=== PATIENT | female | born 1945 | race Caucasian/White ===

== ENCOUNTER → 2016-10-15 | Outpatient (CLI) | payer OTHER | LOC: BMCIMAGING 12:02 | PROVIDERS: ATTEND Nurse Practitioner Obstetrics & Gynecology | DX: Z12.31 Encounter for screening mammogram for malignant neoplasm of breast (principal); Z80.3 Family history of malignant neoplasm of breast; Z85.42 Personal history of malignant neoplasm of other parts of uterus | CPT/HCPCS: G0202 ==

== ENCOUNTER → 2017-02-11 | Outpatient (CLI) | payer OTHER | LOC: BMCIMAGING 09:26 | PROVIDERS: ATTEND Emergency Medicine | DX: M25.551 Pain in right hip (principal) ==

== ENCOUNTER → 2017-07-26 | Outpatient (CLI) | payer OTHER ==
[~2017-07-26] MED LIST: IOPAMIDOL (ISOVUE 370) 100 ML BTL IV ONE
== END ==
LOC: FIMAGING 10:18
PROVIDERS: ATTEND Internal Medicine Cardiovascular Disease
DX: I48.91 Unspecified atrial fibrillation (principal); I48.92 Unspecified atrial flutter
CPT/HCPCS: 75572; Q9967

== ENCOUNTER 2017-08-02 06:52 | Observation (INO) | payer OTHER ==
[2017-08-02] MEDS ORDERED: NS 1,000 ML IV ONE (06:56)
--- NOTE | 2017-08-02 07:14 | CPEKG ---
Heart Rate: 63 RR Interval: 952 P-R Interval: 148 QRSD Interval: 80 QT Interval: 416 QTC Interval: 426 P [place]: 76 QRS [place]: 12 T Wave [place]: -65 EKG Severity - NORMAL ECG - EKG Impression: SINUS RHYTHM Electronically Signed By: Pierre Weldon 02-Aug-2017 07:19:52
[2017-08-02 07:30] LABS: PLATELET COUNT 224 10^3/uL (150-400)
[2017-08-02 07:39] LABS: INR 0.98 (0.83-1.16); PROTIME(PATIENT) 13.2 SEC (12.0-15.0)
--- NOTE | 2017-08-02 08:06 | PDANEPAE ---
ANE History of Present Illness 71 year old female for JAIR/CV and A.Fib/Flutter ablation. ANE Past Medical History - Cardiovascular History Hx Arrhythmias: Yes Hx Chest Pain: No Hx Coronary Artery / Peripheral Vascular Disease: No Hx CHF / Valvular Disease: No - Pulmonary History Hx COPD: No Hx Asthma/Reactive Airway Disease: No Hx Recent Upper Respiratory Infection: No Hx Oxygen in Use at Home: No Hx Sleep Apnea: Yes Pulmonary History Comment: Utilizes CPAP, - Endocrine History Hx Diabetes: No Hypothyroid: Yes Hyperthyroid: No Obesity: no - Renal History Hx Renal Disorders: No - Liver History Hx Hepatic Disorders: No - Neurological & Psychiatric Hx Hx Neurological and Psychiatric Disorders: No - Cancer History Hx Cancer: Yes - Congenital Disorder History Hx Congenital Disorders: No - GI History GERD: no Hx Gastrointestinal Disorders: No ANE Review of Systems Review of systems is: negative Review of Systems: - Exercise capacity Exercise capacity: >=4 METS ANE Patient History - Allergies Allergies/Adverse Reactions: Sulfa (Sulfonamide Antibiotics) [Sulfa(Sulfonamide Antibiotics)] Allergy ( Unknown, Verified 07/26/17 13:07) Rash peanut Allergy (Verified 12/19/14 13:07) - Home Medications Home medications: home medication list seen and reviewed Home Medications: Ascorbic Acid [Vitamin C 500 mg (*)] 500 mg PO DAILY 02/18/12 [Last Taken 08:00] Calcium Carbonate [Oyster Shell Calcium 500 mg (*)] 1,000 mg PO TIDMEAL [Last Taken 08/01/17 08:00] Cholecalciferol (Vitamin D3) [Vitamin D3] 8,000 unit PO DAILY 02/18/12 [Last Taken 08/01/17 08:00] Herbals/Supplements -Info Only 1 each PO AD 02/18/12 [Last Taken 08/01/17 19:00] [place]-3 Fatty Acids/Fish Oil [Fish Oil 1,000 mg Softgel] 1 each PO BID 02/18/12 [Last Taken 08/01/17 19:00] Thyroid,Pork [ARMOUR THYROID] 15 mg PO DAILY 02/18/12 [Last Taken 08/01/17 06:30 ] Vitamin B Complex [B Complex] 1 each PO DAILY 02/18/12 [Last Taken 08/01/17 08: 00] Diltiazem [Cardizem Immediate Release] 30 mg PO DAILY PRN 12/19/14 [Last Taken 06/23/17 09:00] Thyroid [[place] Thyroid 60 MG (*)] 60 mg PO DAILY 12/19/14 [Last Taken 08/01/17 06:30] Apixaban [Eliquis] 5 mg PO BID 07/26/17 [Last Taken 07/30/17 19:00] - NPO status NPO Status: no food or drink >8 hours - Anes Hx Anes Hx: post operative nausea - Smoking Hx Smoking Status: Never smoked Marijuana use: No - Alcohol Use Alcohol Use: Occasionally - Family Anes Hx Family Anes Hx: neg - N/A ANE Labs/Vital Signs - Labs Result Diagrams: 08/02/17 07:20 08/02/17 07:20 - Vital Signs Vital Signs: reviewed preoperatively; see RN documention for details Height: 165 cm Weight: 76 kg ANE Physical Exam - Airway Neck exam: FROM Mallampati Score: Class 2 Mouth exam: normal dental/mouth exam - Pulmonary Pulmonary: no respiratory distress - Cardiovascular Cardiovascular: regular rate and rhythym - ASA Status ASA Status: III ANE Anesthesia Plan Anesthesia Plan: general endotracheal anesthesia Total IV Anesthesia: No
--- NOTE | 2017-08-02 08:09 | PDGENHP ---
History & Physical Chief Complaint: Symptomatic AFIB Relevant Physical Exam: s1s2 rrr. cta. ao 3 Cardiorespiratory Assessment: symptomatic afib and afl for ablation
[2017-08-02] MEDS ORDERED: LIDOCAINE 1% 300 MG/30 ML SDV ONE (08:12)
[2017-08-02] MEDS ORDERED: HEPARIN/DEXTROSE 25,000 UNIT/500 ML BAG ONE (08:12)
[2017-08-02] MEDS ORDERED: HEPARIN 10,000 UNIT/10 ML MDV (1,000 UNIT/ML) ONE (08:12)
[2017-08-02] MEDS ORDERED: IOPAMIDOL (ISOVUE-300) 100 ML BTL ONE (08:13)
[2017-08-02] MEDS ORDERED: BUPIVACAINE 0.5% 30 ML SDV ONE (08:13)
[2017-08-02] MEDS ORDERED: ROCURONIUM 50 MG/5 ML VIAL ONE (08:22)
[2017-08-02] MEDS ORDERED: PHENYLEPHRINE HCL 100 MCG/ML SYR ONE (08:22)
[2017-08-02] MEDS ORDERED: PROPOFOL 200 MG/20 ML VIAL ONE (08:22)
[2017-08-02] MEDS ORDERED: fentaNYL 100 MCG/2 ML INJ ONE (08:22)
[2017-08-02] MEDS ORDERED: ONDANSETRON 4 MG/2 ML VIAL ONE (11:02)
[2017-08-02] MEDS ORDERED: DEXAMETHASONE 4 MG/ML VIAL ONE ×2 (11:02)
[2017-08-02] MEDS ORDERED: PROMETHAZINE HCL 25 MG/ML INJ IVP PRN (11:27)
[2017-08-02] MEDS ORDERED: fentaNYL 100 MCG/2 ML INJ IVP PRN (11:27)
[2017-08-02] MEDS ORDERED: ONDANSETRON 4 MG/2 ML VIAL IVP PRN (11:27)
[2017-08-02] MEDS ORDERED: NALOXONE HCL 0.4 MG/ML INJ IVP PRN (11:27)
[2017-08-02] MEDS ORDERED: PHENYLEPHRINE HCL 100 MCG/ML SYR IVP PRN (11:27)
[2017-08-02] MEDS ORDERED: LR 500 ML IV PRN (11:27)
[2017-08-02] MEDS ORDERED: PROTAMINE SULFATE 50 MG/5 ML VIAL IVP ONE (11:38)
--- NOTE | 2017-08-02 11:56 | EPPROC ---
Electrophysiology Procedure Note: ELECTROPHYSIOLOGIC STUDY AND BALLOON-CATHETER MEDIATED CRYOABLATION FOR PAROXYSMAL ATRIAL FIBRILLATION AND ATRIAL FLUTTER Procedures performed: 85550-30 EP evaluation with RA/RV/LA pace/record, with arrhythmia induction 16050-16 EP evaluation with RA/RV pace record, insert/reposition catheter, with arrhythmia induction 52899 Atrial fibrillation ablation Atrial flutter Intracardiac echocardiogram Transseptal puncture Fluoroscopy INDICATION: Paroxysmal atrial fibrillation , atrial flutter PROCEDURE: The patient arrived in the Electrophysiology Laboratory in the fasting state. The right groin, left groin and right infraclavicular area were prepped and draped in the usual sterile fashion. Anesthesiologist administered general anesthesia Dr. Michel Morris. JAIR was done, this shows small secundum ASD, moderate MR and moderate TR. 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 Beto Rosen we decided to proceed with ablation . All catheters were placed percutaneously using the Seldinger technique and advanced into position under fluoroscopic guidance. One #7 [place] deflectable octapolar electrode catheter was placed in the His-bundle position via the left femoral vein (2mm spacing, IVC electrode for unipolar recordings). This catheter was placed in the coronary sinus after transseptal puncture and later placed in the SVC-R subclavian vein junction to pace the right phrenic nerve during right pulmonary vein ablation. One #8 [place] AcuNaV ultrasound catheter was placed in the left femoral vein and advanced into the right atrium. One #4 [place] sheath was inserted into the left femoral artery via percutaneous technique and used for continuous arterial blood pressure monitoring and intermittent ACT determination. Intracardiac echo evaluation of the left atrium and pulmonary veins was performed. Baseline ACT was drawn and heparin bolus was administered and heparin drip was started prior to transseptal puncture. ACT was checked every 15 minutes and maintained in the range of 350-400 seconds. One 14Fr short sheath was placed in the right femoral vein. One 8Fr SL1 sheath was advanced into the right atrium via the 14Fr short sheath. SL1 sheath was placed in LA via ASD. ICE and Pentaray catheter were used for 3D LA mapping. The SL1 sheath was exchanged for a Medtronic Flexcath sheath using an Amplatz stiff guide wire. A 28 mm Cryoballoon catheter with a 20 mm Achieve catheter was placed via the sheath into the left atrium. Intracardiac ultrasound and PV angiograms were used to assist in placing the mapping catheter at the antrum of the pulmonary veins. AFIB and AFL were seen during procedure. All pulmonary veins were isolated successfully using cryoballoon ablation using freeze/thaw/freeze cycles at 2-3-minute intervals, with good darc-er-udofog of isolation. Coumadin ridge/Ligament of [place] region was ablated. Pre and post pulmonary vein recordings were measured on the spiral Achieve catheter to ensure complete pulmonary vein isolation. During the right-sided ablation, phrenic nerve pacing was performed to assess the phrenic nerve strength ( manually and with ICE visualization of liver movement during phrenic capture) and the phrenic nerve was intact throughout the right-sided ablation and at the end of the procedure. AFIB terminated during ablation of RSPV. An esophageal temperature probe (12 electrode, Circa) was placed by the anesthesiologist at the beginning of the procedure. Esophageal temperature was monitored continuously and cryoablation was interrupted if esophageal temperature was <15 C. Cryoapplications 8 total cryoablation time 1279s ICE imaging post ablation was consistent with pre ablation imaging with no changes Sheath was withdrawn into LA. Flexcath sheath was changed to short 14 Fr sheath. Agilis sheath was placed via short sheath. Halo catheter was placed in RA along the TA. Ablation was performed using 3.5 mm STSF catheter and ablation performed along CT isthmus at 0630 oclock as seen in the DANISH view. Bidirectional conduction block was achieved. Septal to lateral conduction time 180 ms. ICE catheter was used to visualize LA, LV and MV. There was no left atrial/ left ventricular thrombus and no pericardial effusion. The catheters were withdrawn. Protamine was given. Venous vascular access sheaths were removed in the EP lab after placing subcutaneous pursestring suture. The patient was recovered from anesthesia. There were no complications. The patient was arousable and moving all four extremities at the end of the procedure. CONCLUSIONS: 1. Paroxysmal atrial fibrillation. 2. Successful pulmonary vein isolation procedure (left and right pulmonary vein antrum) using cryoballoon ablation. 3. Atrial flutter with ablation of CT isthmus and bidirectional conduction block achieved. 4. No apparent complications. Patient Problems: Problems Problem Status Onset Atrial fibrillation and flutter Acute
--- NOTE | 2017-08-02 13:07 | CPEKG ---
Heart Rate: 58 RR Interval: 1034 P-R Interval: 164 QRSD Interval: 80 QT Interval: 424 QTC Interval: 417 P [place]: 71 QRS [place]: 57 T Wave [place]: -83 EKG Severity - NORMAL ECG - EKG Impression: SINUS RHYTHM EKG Impression: Lateral STT changes (old) Electronically Signed By: Pierre Weldon 02-Aug-2017 13:45:12
[2017-08-02] MEDS: APIXABAN 5 MG TAB PO SCH (18:39)
[2017-08-03 04:35] LABS: PLATELET COUNT 202 10^3/uL (150-400)
--- NOTE | 2017-08-03 08:55 | POSTANESTH ---
Post Anesthetic Evaluation Cardiovascular Status: Normal, Stable, Similar to Pre-Op Cond Respiratory Status: Normal, Stable, Similar to Pre-op Cond. Level of Consciousness/Mental Status: Can Participate in Eval, Alert and Oriented Pain Control: Adequate, Prn Tx Ordered Nausea/Vomiting Control: Adequate, Prn Tx Ordered Complications Possibly Related to Anesthesia: None Noted
[2017-08-03] MEDS: APIXABAN 5 MG TAB PO SCH (08:59)
[2017-08-03] MEDS ORDERED: NON-FORMULARY NEW DRUG (Thyroid,Pork [Armour Thyroid] 15 MG) PO SCH (09:00)
[2017-08-03] MEDS ORDERED: THYROID 60 MG TAB PO SCH (09:00)
[2017-08-03 09:05] VITALS: BP 111/73
--- NOTE | 2017-08-03 09:05 | CPEKG ---
Heart Rate: 63 RR Interval: 952 P-R Interval: 152 QRSD Interval: 80 QT Interval: 392 QTC Interval: 402 P [place]: 74 QRS [place]: 43 T Wave [place]: -63 EKG Severity - NORMAL ECG - EKG Impression: SINUS RHYTHM Electronically Signed By: Pierre Weldon 03-Aug-2017 10:46:03
--- NOTE | 2017-08-03 10:43 | ECHO ---
[email or web address] [address] [address] Main: [phone] Fax: [email or web address] Echocardiogram Name: DARBY GOMEZ MR#: [id number] Study Date: 08/03/2017 Study Time: 08:07 AM Date of : 1945 Age: 71 year(s) Height: 165.1 cm (65 in.) Weight: 75.75 kg (167 lb.) BSA: 1.83 m2 Gender: Female Examination: Echo Indication: F/U post EP study Image Quality: Contrast: Requested by: Pierre Weldon BP: 106 mmHg/66 mmHg Heart Rate: Rhythm: Indication: F/U post EP study Procedure Staff Contract Post Office Clerk: Lisa Azul RDCS Reading Physician: Pierre Weldon MD Requesting Provider: Conclusions: Normal global systolic LV function. The left atrium is moderately dilated. Aneurysmal atrial septal wall with a small secundum ASD visualized.. The right atrium is moderately dilated. Moderate mitral valve regurgitation is present. Moderate tricuspid regurgitation is present. RVSP is 46-51mmHG.. Measurements: Chambers Valvular Assessment AV/MV Valvular Assessment TV/PV Normal Normal Normal Name Value Range Name Value Range Name Value Range Ao Dolores (MM): 3.2 cm (2.2 cm-3.7 AV Vmax: 1.55 m/s (1 m/s-1.7 TR Vmax: 3.22 mm/s ( - ) cm) m/s) TR PGmax: 41 mmHg ( - ) IVSd (2D): 0.9 cm (0.6 cm-1.1 AV maxP mmHg ( - ) syst. PAP: 46 mmHg ( - ) cm) AV meanP mmHg ( - ) LVDd (2D): 4.6 cm (3.9 cm-5.3 LVOT Vmax: 0.91 m/s (0.7 m/s-1.1 cm) m/s) LVDs (2D): 2.3 cm (2.1 cm-4 LIDIA (Vmax): 1.7 cm2 ( - ) cm) LIDIA (VTI): 1.8 cm ( - ) LVPWd (2D): 0.9 cm ( - ) MV E Vmax: 0.79 m/s ( - ) LVOTd 1.9 cm 1.9 cm mm MV A Vmax: 0.63 m/s ( - ) LVEF (MOD4): 71 % (>=55 %) MV E/A: 1.25 ( - ) EF Range: 65-70 % MV maxP mmHg ( - ) MV meanP mmHg ( - ) MVA (Vmax): 0.4 m/s ( - ) Continued Measurements: Chambers Valvular Assessment AV/MV Valvular Assessment TV/PV Patient: DARBY GOMEZ Study Date: 08/03/2017 Page 1 of 2 08:07 AM Name Value Name Value Name Value LADs: 3.5 cm MV Annulus: 3.0 cm CVP (est.): 5 mmHg LADs Lon.5 cm MV E/E' Septal: 9.10 LA Area: 22.2 cm2 MV E/E' Lateral: 10.70 MV VTI: 146.00 cm MR Vena Contracta: 0.3 cm MR PISA radius: 2 mm Additional Vessels Name Value Ao Ascendin.7 cm Findings: Left Ventricle: Normal size left ventricle. No LV hypertrophy. Normal global systolic LV function. The ejection fraction is estimated to be 65-70 %. No regional wall motion abnormality. Right Ventricle: Normal size right ventricle. Left Atrium: The left atrium is moderately dilated. Aneurysmal atrial septal wall with a small secundum ASD visualized.. Right Atrium: The right atrium is moderately dilated. Mitral Valve: The mitral valve is normal in appearance and function. Moderate mitral valve regurgitation is present. Aortic Valve: The aortic valve is normal in appearance and function. The aortic valve is tri-leaflet. Trivial to mild aortic valve regurgitation. Tricuspid Valve: The tricuspid valve is normal in appearance and function. Moderate tricuspid regurgitation is present. RVSP is 46-51mmHG.. Pulmonic Valve: The pulmonic valve is normal in appearance and function. Aorta: The aorta is normal. Pericardium: No pericardial effusion. There is pericardial fat. (No Signature Object) Patient: DARBY GOMEZ Study Date: 08/03/2017 Page 2 of 2 08:07 AM [id number]
--- NOTE | 2017-08-03 16:36 | GDS ---
[f rep st] DISCHARGE SUMMARY ADMISSION DIAGNOSES: 1. Atrial fibrillation. 2. Planned atrial fibrillation ablation. DISCHARGE DIAGNOSIS: Status post successful atrial fibrillation, atrial flutter ablation. COURSE OF HOSPITALIZATION: Rosaline is a patient of Dr. Beto Rosen. She had episodes of atrial fi brillation that were not managed well on medical therapy. Recommendation was for consideration of ab lation therapy. Dr. Pierre Weldon evaluated the patient and agreed with proceeding with ablation therap y. She was taken to the EP lab by Dr. Weldon on August 02, 2017 where he was able to successfully isolat e atrial fibrillation with cryoablation. There were no complications. CONCLUSION: 1. Paroxysmal atrial fibrillation. 2. Successful pulmonary vein isolation procedure, left and right pulmonary vein antrum using cryoabl ation. 3. Atrial flutter with ablation of CT isthmus and bidirectional conduction block achieved. 4. No complications. ALLERGIES: She is allergic to sulfa and peanuts. MEDICATIONS: She will be discharged home on Eliquis 5 mg twice daily, diltiazem 30 mg daily as neede d, [place] Thyroid 60 mg 1 tablet daily as needed, [place] Thyroid 50 mg daily, oyster shell calcium 10 00 mg 3 times daily with meals, vitamin D3 8000 units daily, vitamin C 500 mg daily, fish oil 1000 mg twice daily, B complex 1 daily, herbal supplements daily. PHYSICAL EXAMINATION: VITAL SIGNS: On day of discharge: Blood pressure 111/73, heart rate 69. HEART: Cardiac rhythm: Normal sinus rhythm. No breakthrough arrhythmias were noted. Heart rate re gular. No murmurs, rubs, gallops. LUNG: Sounds are clear to auscultation. No wheezes, rales, or rhonchi. EXTREMITIES: Peripheral pulses are 2+ bilaterally. Bilateral groin sites are intact with no bleedin g, induration or pain. DISCHARGE PLAN: She will be discharged home on current medications. Groin restrictions were reviewe d with her, both written and verbally. Groin restrictions for 1 week. She will follow up with Dr. Pete sal as scheduled in 10 days. At this time she currently is stable for discharge. /[id number]/MODL
[2017-08-04] MEDS ORDERED: CHOLECALCIFEROL 8000 UNIT PO SCH (09:00)
[2017-08-04] MEDS ORDERED: CHOLECALCIFEROL VIT D3 2,000 UNITS TAB/CAP PO SCH (09:00)
== END 2017-08-03 11:40 | disposition home or self-care (01) ==
LOC: FCATH 06:52 → F2N 11:58 → UNDOADMOB 12:02 → INTOOBSV 12:02 → F2N 12:02
PROVIDERS: ADMIT Internal Medicine Cardiovascular Disease; ATTEND Internal Medicine Cardiovascular Disease
PROC: 4A023FZ Measurement of Cardiac Rhythm, Percutaneous Approach (ICD-10-PCS; principal; 2017-08-02)
PROC: 02K83ZZ Map Conduction Mechanism, Percutaneous Approach (ICD-10-PCS; principal; 2017-08-02)
PROC: 02H73MZ Insertion of Cardiac Lead into Left Atrium, Percutaneous Approach (ICD-10-PCS; principal; 2017-08-02)
PROC: 5A2204Z Restoration of Cardiac Rhythm, Single (ICD-10-PCS; principal; 2017-08-02)
PROC: 025S3ZZ Destruction of Right Pulmonary Vein, Percutaneous Approach (ICD-10-PCS; principal; 2017-08-02)
PROC: 02563ZZ Destruction of Right Atrium, Percutaneous Approach (ICD-10-PCS; principal; 2017-08-02)
PROC: 025T3ZZ Destruction of Left Pulmonary Vein, Percutaneous Approach (ICD-10-PCS; principal; 2017-08-02)
DX: I48.0 Paroxysmal atrial fibrillation (principal)
CPT/HCPCS: 92960; 93005; 93306; 93613; 93621; 93655; 93656; 93662; C1730; C1731; C1732; C1733; C1759; C1766; C1893; J1100; J1644; J2370; J2405; J2704; J2720; J3010; Q9967

== ENCOUNTER → 2017-08-11 | Outpatient (CLI) | payer OTHER | LOC: BHFA 13:30 | PROVIDERS: ATTEND Internal Medicine Cardiovascular Disease | DX: I48.91 Unspecified atrial fibrillation (principal) ==

== ENCOUNTER → 2017-08-31 | Outpatient (CLI) | payer OTHER | LOC: BHFA 13:30 | PROVIDERS: ATTEND Internal Medicine Cardiovascular Disease | DX: I48.91 Unspecified atrial fibrillation (principal); I48.92 Unspecified atrial flutter ==

== ENCOUNTER → 2017-10-17 | Outpatient (CLI) | payer OTHER | LOC: BMCIMAGING 13:35 | PROVIDERS: ATTEND Family Medicine | DX: Z12.31 Encounter for screening mammogram for malignant neoplasm of breast (principal); Z80.3 Family history of malignant neoplasm of breast ==

== ENCOUNTER → 2018-02-20 | Outpatient (CLI) | payer OTHER | LOC: BHFA 11:00 | PROVIDERS: ATTEND Internal Medicine Cardiovascular Disease | DX: I48.91 Unspecified atrial fibrillation (principal) ==